=== PATIENT | male | born 1945 | race Caucasian/White ===

== ENCOUNTER 2018-06-21 14:08 | Outpatient (CLI) | payer BC, MEDICARE ==
--- NOTE | 2018-06-21 15:07 | RAD ---
TWO VIEWS LEFT HIP: Comparison: None. History: Osteoarthritis. FINDINGS: Two views of the left hip shows no evidence of acute fracture or dislocation. Moderate to severe join t space narrowing and osteophyte formation is seen consistent with osteoarthritis. IMPRESSION: Moderate to severe left hip osteoarthritis. POS: [facility]
--- NOTE | 2018-06-21 15:17 | RAD ---
LUMBAR SPINE TWO VIEWS: HISTORY: Low back pain. COMPARISON: None. FINDINGS: Mild levoscoliosis of the lumbar spine. Multilevel degenerative disk space height loss, greatest at L2-S1. Large bridging lateral osteophytes. Moderate to severe facet arthropathy on the left at L4-L5 and at L5-S1. Moderate degenerative change of both SI joints. The paraspinal soft tissues are unremarkable. No acute fracture or malalignment. No significant lis thesis. IMPRESSION: Moderate levoscoliosis with advanced degenerative change. POS: [facility]
--- NOTE | 2018-06-21 15:21 | RAD ---
SACROILIAC JOINTS X-RAY GREATER THAN OR EQUAL TO THREE VIEWS: HISTORY: Pain. COMPARISON: None. FINDINGS: There is mild asymmetric, left worse than right SI joint degenerative disease. There is levoscoliosi s of the lumbar spine. Degenerative changes of the pubic symphysis with narrowing and sclerosis, as well as osteophyte forma tion. Bilateral acetabular osteophyte formation is present. Narrowing of the left greater than righ t hip joint articular surface cartilage. IMPRESSION: Degenerative changes, as described. POS: [facility]
== END 2018-06-21 14:09 | disposition home or self-care (01) ==
LOC: BICRAD 14:08
PROVIDERS: ATTEND Internal Medicine
DX: M54.5 Low back pain (principal); M25.519 Pain in unspecified shoulder; M47.816 Spondylosis without myelopathy or radiculopathy, lumbar region; M41.9 Scoliosis, unspecified; M16.12 Unilateral primary osteoarthritis, left hip
CPT/HCPCS: 72100; 72202

== ENCOUNTER 2018-08-06 22:37 | Emergency (ER) | payer BC, MEDICARE ==
[2018-08-06] MEDS ORDERED: HYDROcodone/Acetaminophen 10/325 mg Tablet ONE (23:36)
[2018-08-07] MEDS ORDERED: Morphine 4 MG/ML VIAL ONE (00:35)
[2018-08-07] MEDS ORDERED: Ondansetron PF 4 MG/2 ML Vial ONE (00:35)
--- NOTE | 2018-08-07 10:12 | RAD ---
PA AND LATERAL CHEST: Date: 08/06/18 HISTORY: Chest pain. FINDINGS: Heart size appears slightly enlarged. There is elevation of the right hemidiaphragm. The lungs are cl ear of any infiltrative process. I do not appreciate any rib fractures. IMPRESSION: 1. Suboptimal inspiration. 2. Cardiomegaly. POS: [facility]
--- NOTE | 2018-08-07 10:19 | RAD ---
LEFT RIBS 3 VIEWS: Date: 08/06/18 HISTORY: Left rib pain. FINDINGS: There are arthritic changes of the shoulder noted. There are no signs of pneumothorax. I do not visua lize any definite acute rib fractures. IMPRESSION: No acute rib fractures. POS: [facility]
== END 2018-08-07 01:10 | disposition home or self-care (01) ==
LOC: ERS 22:37
DX: S22.32XA Fracture of one rib, left side, initial encounter for closed fracture (principal); I48.91 Unspecified atrial fibrillation; E78.5 Hyperlipidemia, unspecified; Z79.01 Long term (current) use of anticoagulants; Z79.899 Other long term (current) drug therapy; W01.0XXA Fall on same level from slipping, tripping and stumbling without subsequent striking against object, initial encounter
CPT/HCPCS: 71046; 94799; 96374; 96375; J2270; J2405

== ENCOUNTER 2018-08-22 10:36 | Outpatient (CLI) | payer MEDICARE, BC ==
--- NOTE | 2018-08-22 11:10 | RAD ---
Exam: Chest 2 views HISTORY:Fall, left-sided chest pain Comparison: 08/06/2018 FINDINGS: Lungs: Patchy left basilar density. Elevation right hemidiaphragm with hypoinflated right lung. Cardiac silhouette:Enlarged Pulmonary vessels: Normal Pleural Spaces: Mild left pleural fluid Pneumothorax: None Osseous abnormalities: Posterior left sixth and seventh rib fractures are seen. Ribs inferior to this level are not reliably visualized. IMPRESSION: Posterior left rib fractures with associated pleural-based and parenchymal density at the inferior left chest. No significant pneumothorax is visualized.
--- NOTE | 2018-08-22 13:19 | RAD ---
LEFT RIBS 2 VIEWS: Date: 08/22/18 HISTORY: Rib pain. COMPARISON: Chest x-ray dated 08/22/18, left ribs 08/06/18. FINDINGS: Minimally displaced fractures involving the left 6th, 7th, 8th, and 9th ribs. No pneumothorax or pleu ral effusion. IMPRESSION: 6th-9th left posterior rib fractures. No pneumothorax or pleural effusion. POS: [facility]
== END 2018-08-22 10:37 | disposition home or self-care (01) ==
LOC: BICRAD 10:36
PROVIDERS: ATTEND Internal Medicine
DX: R07.9 Chest pain, unspecified (principal); R06.00 Dyspnea, unspecified; T14.8XXA Other injury of unspecified body region, initial encounter; S22.42XA Multiple fractures of ribs, left side, initial encounter for closed fracture; J98.4 Other disorders of lung
CPT/HCPCS: 71046

== ENCOUNTER 2018-08-29 14:44 | Outpatient (CLI) | payer MEDICARE, BC ==
--- NOTE | 2018-08-29 16:29 | RAD ---
CHEST TWO VIEWS: HISTORY: Shortness of breath and wheezing. COMPARISON: Radiograph from 08/22/2018. FINDINGS: The lungs are hypoinflated with vascular crowding, as well as bibasilar atelectatic changes. No pneu mothorax. No large effusion. No acute osseous abnormality. IMPRESSION: 1. Lung hypoinflation with atelectatic changes. 2. No further displacement of left posterior rib fractures. No pneumothorax. POS: [facility]
--- NOTE | 2018-08-29 16:31 | RAD ---
LEFT RIBS: HISTORY: Chest pain. COMPARISON: None. FINDINGS: No further displacement of the left posterior 6th-9th rib fractures. Early callus formation. No pneumothorax. IMPRESSION: No further displacement of left posterior rib fractures. POS: [facility]
== END 2018-08-29 14:45 | disposition home or self-care (01) ==
LOC: BICRAD 14:44
PROVIDERS: ATTEND Internal Medicine
DX: R07.89 Other chest pain (principal); R06.2 Wheezing; R06.02 Shortness of breath
CPT/HCPCS: 71046